=== PATIENT | female | born 1960 | race Caucasian/White ===

== ENCOUNTER 2018-11-28 14:55 | Outpatient (CLI) | payer BC ==
[2018-11-28] MEDS ORDERED: POTA8TAB8 PO (16:27)
[2018-11-28] MEDS ORDERED: ASCO1TAB39 PO (16:27)
[2018-11-28] MEDS ORDERED: IBUP-1985 PO (16:27)
[2018-11-28] MEDS ORDERED: FURO40TA4 PO (16:27)
[2018-11-28] MEDS ORDERED: LACT1CAP26 PO (16:27)
[2018-11-28] MEDS ORDERED: LEVO150T8 PO (16:27)
[2018-11-28] MEDS ORDERED: SIMV40TA4 PO (16:27)
[2018-11-28] MEDS ORDERED: LOSA50TA64 PO (16:27)
[2018-11-28] MEDS ORDERED: ASPI81TA52 PO (16:27)
[2018-11-28 16:30] LABS: BASOPHILS % (AUTO) 0.6 % (0-1); EOSINOPHILS # (AUTO) 0.3 X10'3 (0-0.9); EOSINOPHILS % (AUTO) 5.3 % (0-6); LYMPHOCYTES # (AUTO) 1.3 X10'3 (1.1-4.8); LYMPHOCYTES % (AUTO) 23.7 % (21-51); MEAN CORPUSCULAR HGB CONC 33.1 g/dL (33.0-36.5); MEAN CORPUSCULAR VOLUME 93.6 FL (78-98); MEAN PLATELET VOLUME 8.9 FL (7.4-10.4); MONOCYTES # (AUTO) 0.7 X10'3 (0-0.9); MONOCYTES % (AUTO) 12.1 % (2-12); NEUTROPHILS # (AUTO) 3.3 X10'3 (1.8-7.7); NEUTROPHILS % (AUTO) 58.3 % (42-75); PRE OP HEMATOCRIT 43.5 % (35.0-45.0); PRE OP HEMOGLOBIN 14.4 g/dL (12.0-16.0); PRE OP PLATELET COUNT 202 X10'3 (140-440); RED BLOOD COUNT 4.65 X10'6 (4.20-5.60)
[2018-11-28 16:43] LABS: BLOOD UREA NITROGEN 10 MG/DL (7-18); BUN/CREATININE RATIO 15.6 (6.6-38.0); CALCIUM 9.7 MG/DL (8.5-10.1); CHLORIDE 107 MMOL/L (99-107); CREATININE 0.64 MG/DL (0.40-0.90); PRE OP ANION GAP 7 (8-16); PRE OP BILIRUB, TOTAL 0.7 MG/DL (0.0-1.0); PRE OP GLUCOSE 92 MG/DL (70-104); PRE OP POTASSIUM 3.8 MMOL/L (3.4-5.1); PRE OP SODIUM 144 MMOL/L (135-145); TOTAL CARBON DIOXIDE 29.7 MMOL/L (24-32); TOTAL PROTEIN 7.1 G/DL (6.4-8.2); eGFR > 90 ML/MIN
[2018-11-28 16:44] LABS: ALBUMIN 4.1 G/DL (3.4-5.0); ALBUMIN/GLOBULIN RATIO 1.4 (1.1-1.5); ALKALINE PHOSPHATASE 62 IU/L (46-116); PRE OP ALT 38 U/L (30-65); PRE OP AST 21 U/L (10-37)
== END 2018-11-28 23:59 | disposition home or self-care (01) ==
LOC: PRE-OP 14:55 → EDSTATUS 12-06 12:00
PROVIDERS: ATTEND Orthopaedic Surgery
DX: S83.281A Other tear of lateral meniscus, current injury, right knee, initial encounter (principal); S83.211A Bucket-handle tear of medial meniscus, current injury, right knee, initial encounter; M25.561 Pain in right knee; Z01.812 Encounter for preprocedural laboratory examination; I10 Essential (primary) hypertension; I25.2 Old myocardial infarction
CPT/HCPCS: 36415; 71046; 80053; 85025

== ENCOUNTER 2019-01-17 05:21 | Day surgery (SDC) | payer BC ==
[2019-01-10 12:30] LABS: BASOPHILS % (AUTO) 0.8 % (0-1); EOSINOPHILS # (AUTO) 0.3 X10'3 (0-0.9); EOSINOPHILS % (AUTO) 4.8 % (0-6); LYMPHOCYTES # (AUTO) 1.6 X10'3 (1.1-4.8); LYMPHOCYTES % (AUTO) 26.9 % (21-51); MEAN CORPUSCULAR HEMOGLOBIN 30.9 PG (27.0-31.0); MEAN CORPUSCULAR HGB CONC 33.3 g/dL (33.0-36.5); MEAN CORPUSCULAR VOLUME 92.8 FL (78-98); MEAN PLATELET VOLUME 9.4 FL (7.4-10.4); MONOCYTES # (AUTO) 0.5 X10'3 (0-0.9); MONOCYTES % (AUTO) 7.9 % (2-12); NEUTROPHILS # (AUTO) 3.5 X10'3 (1.8-7.7); NEUTROPHILS % (AUTO) 59.6 % (42-75); PRE OP HEMATOCRIT 42.3 % (35.0-45.0); PRE OP HEMOGLOBIN 14.1 g/dL (12.0-16.0); PRE OP PLATELET COUNT 237 X10'3 (140-440); RED BLOOD COUNT 4.56 X10'6 (4.20-5.60); RED CELL DISTRIBUTION WIDTH 12.9 % (11.5-14.5)
[2019-01-10 12:42] LABS: PRE OP INR 0.9 INR
[2019-01-10 12:47] LABS: ALBUMIN 4.1 G/DL (3.4-5.0); ALBUMIN/GLOBULIN RATIO 1.2 (1.1-1.5); ALKALINE PHOSPHATASE 64 IU/L (46-116); BLOOD UREA NITROGEN 14 MG/DL (7-18); BUN/CREATININE RATIO 21.5 (6.6-38.0); CALCIUM 9.5 MG/DL (8.5-10.1); CHLORIDE 108 MMOL/L (99-107); CREATININE 0.65 MG/DL (0.40-0.90); PRE OP ALT 30 U/L (30-65); PRE OP ANION GAP 8 (8-16); PRE OP AST 32 U/L (10-37); PRE OP BILIRUB, TOTAL 0.5 MG/DL (0.0-1.0); PRE OP GLUCOSE 86 MG/DL (70-104); PRE OP POTASSIUM 3.9 MMOL/L (3.4-5.1); PRE OP SODIUM 144 MMOL/L (135-145); TOTAL CARBON DIOXIDE 28.4 MMOL/L (24-32); TOTAL PROTEIN 7.4 G/DL (6.4-8.2); eGFR > 90 ML/MIN
[~2019-01-17] VITALS: Ht 185.4 cm; Wt 142.4 kg
[2019-01-17] VITALS (9 sets, daily range): BP systolic 129–141; BP diastolic 76–99
[~2019-01-17 05:21] MED LIST: ASCO1TAB39 PO; ASPI81TA52 PO; FURO40TA4 PO; LACT1CAP26 PO; LEVO150T8 PO; LOSA50TA64 PO; NITR0.4T48 SL; POTA8TAB8 PO; SIMV40TA4 PO; ringers solution, lacted 1,000 ML IV SCH
[2019-01-17] MEDS ORDERED: famotidine 20mg tablet PO ONE (05:30)
[2019-01-17] MEDS ORDERED: ceFAZolin 1GM/D5W- ADD-VANTAGE 50 ML IV ONE (06:00)
[2019-01-17] MEDS ORDERED: cefazolin/dext.iso 2gm/50ml 50 ML IV ONE (06:00)
[2019-01-17] MEDS ORDERED: LIDOcaine 1% (10mg/ml) 2ml vial ONE (06:13)
[2019-01-17] MEDS ORDERED: ROPIVAcaine 0.5% (5mg/ml) 30ml vial ONE (07:16)
[2019-01-17] MEDS ORDERED: fentaNYL /PF 50mcg/ml 5ml ampule ONE (07:35)
[2019-01-17] MEDS ORDERED: midazolam 2 mg/2 ml injection ONE (07:35)
[2019-01-17] MEDS ORDERED: LIDOcaine 2% (20mg/ml) 5ml vial ONE (07:36)
[2019-01-17] MEDS ORDERED: propofol inj 20 ML IV ONE (07:36)
[2019-01-17] MEDS ORDERED: ringers solution, lacted 1,000 ML IV SCH (08:02)
[2019-01-17] MEDS ORDERED: morphine 4 MG/ML inj SYRINge IV PRN ×2 (08:05)
[2019-01-17] MEDS ORDERED: ondansetron/PF 4mg/2ml inj IV PRN (08:05)
[2019-01-17] MEDS ORDERED: proCHLORperazine 10 MG/2 ml inj IV PRN (08:05)
[2019-01-17] MEDS ORDERED: meperidine/PF 25mg/ml syringe IV PRN ×2 (08:05)
[2019-01-17] MEDS ORDERED: dexamethasone sod phosphate 4mg/ml inj. ONE (08:20)
[2019-01-17] MEDS ORDERED: ondansetron/PF 4mg/2ml inj ONE (08:20)
[2019-01-17] MEDS ORDERED: glycopyrrolate 0.2mg/ml inj ONE (08:20)
[2019-01-17] MEDS ORDERED: epiNEPHrine 1 mg/ml inj ONE (08:25)
--- NOTE | 2019-01-17 08:55 | NUR ---
Received from OR via BED, accompanied by Anesthesiologist DR WILKERSON and report given by Anesthesiolgist. PATIENT A&OX4, DENIES PAIN, V/S WNL, NEUROVASCULAR CHECKS INTACT, 20G PIV LUE, SCD ON, DRESSING TO RIGHT KNEE CDI ELEVATED WITH ICEBAG APPLIED.
[2019-01-17] MEDS: meperidine/PF 25mg/ml syringe IV PRN ×2 (09:15→09:27)
--- NOTE | 2019-01-17 10:05 | NUR ---
I HAVE REVIEWED D/C INSTRUCTIONS WITH PATIENT AND FAMILY AND THEY HAVE VERBALIZED UNDERSTANDING. PATIENT D/C HOME WITH ALL BELONGINGS AND FAMILY GAVE TRANSPORT HOME.
--- NOTE | 2019-01-17 10:05 | NUR ---
PATIENT A&OX4, STATES PAIN CONTROLLED, V/S WNL, NEUROVASCULAR CHECKS INTACT, 20G PIV LUE D/C, SCD OFF, DRESSING TO RIGHT KNEE CDI WITH ICEBAG .
== END 2019-01-17 10:05 | disposition home or self-care (01) ==
LOC: PAS 05:21
PROVIDERS: ATTEND Orthopaedic Surgery
DX: S83.231A Complex tear of medial meniscus, current injury, right knee, initial encounter (principal); M65.861 Other synovitis and tenosynovitis, right lower leg; I10 Essential (primary) hypertension; I25.2 Old myocardial infarction; E03.9 Hypothyroidism, unspecified; M19.90 Unspecified osteoarthritis, unspecified site; E66.9 Obesity, unspecified; Z68.41 Body mass index [BMI] 40.0-44.9, adult; Z91.09 Other allergy status, other than to drugs and biological substances; Z79.899 Other long term (current) drug therapy; Z79.82 Long term (current) use of aspirin; Z90.49 Acquired absence of other specified parts of digestive tract; Z98.890 Other specified postprocedural states; Z85.820 Personal history of malignant melanoma of skin; Z79.01 Long term (current) use of anticoagulants; X58.XXXA Exposure to other specified factors, initial encounter; Y93.89 Activity, other specified; Y92.89 Other specified places as the place of occurrence of the external cause; Y99.8 Other external cause status
CPT/HCPCS: 29881; 36415; 80053; 82948; 85025; 85610; 85730; J0171; J0690; J1100; J2001; J2175; J2250; J2405; J2704; J3010; J7120; A4215; A4618; A6449; A7000; J2795; J3490

== ENCOUNTER 2019-01-30 15:26 | Outpatient (CLI) | payer BC ==
[~2019-01-30 15:26] MED LIST changes: +SIMV-45 PO; -SIMV40TA4 PO; -ringers solution, lacted 1,000 ML IV SCH
== END 2019-01-30 23:59 | disposition home or self-care (01) ==
LOC: VAS 15:26
PROVIDERS: ATTEND Orthopaedic Surgery
DX: I86.8 Varicose veins of other specified sites (principal); I10 Essential (primary) hypertension; M19.90 Unspecified osteoarthritis, unspecified site
CPT/HCPCS: 93971